=== PATIENT | female | born 1970 | race Caucasian/White ===

== ENCOUNTER 2017-07-01 18:44 | Emergency (ER) | payer OTHER ==
[2017-07-01 19:14] LABS: BASOPHILS # (AUTO) 0.1 10^3/uL (0.0-0.1); BASOPHILS % (AUTO) 0.8 %; EOSINOPHILS # (AUTO) 0.2 10^3/uL (0.0-0.7); EOSINOPHILS % (AUTO) 2.6 %; HGB - HEMOGLOBIN 12.5 g/dL (12.0-16.0); LYMPHOCYTES # (AUTO) 3.1 10^3/uL (1.5-3.5); LYMPHOCYTES % (AUTO) 34.1 %; MEAN CORPUSCULAR HEMOGLOBIN 28.4 pg (27.0-31.0); MEAN CORPUSCULAR HGB CONC 33.2 g/dL (32.0-36.0); MEAN CORPUSCULAR VOLUME 85.4 fL (81.0-99.0); MEAN PLATELET VOLUME 7.8 fL (7.9-10.8); MONOCYTES # (AUTO) 0.5 10^3/uL (0.0-1.0); MONOCYTES % (AUTO) 5.8 %; NEUTROPHILS # (AUTO) 5.1 10^3/uL (1.5-6.6); NEUTROPHILS % (AUTO) 56.7 %; PLT - PLATELET COUNT 252 10^3/uL (130-450); RED BLOOD COUNT 4.42 10^6/uL (4.20-5.40); RED CELL DISTRIBUTION WIDTH 13.8 % (12.0-15.0)
[2017-07-01 19:24] LABS: ALBUMIN/GLOBULIN RATIO 1.2 (1.0-2.2); BILIRUBIN,TOTAL 0.2 mg/dL (0.2-1.0); CALCIUM 8.9 mg/dL (8.5-10.3); CREATININE 0.8 mg/dL (0.4-1.0); TOTAL PROTEIN 7.3 g/dL (6.7-8.2)
--- NOTE | 2017-07-01 19:25 | ED Physician Documentation ---
History of Present Illness - Stated complaint Stated Complaint: BARRIOS/ABDIAZIZ/ABD & BACK PX - Chief complaint Chief Complaint: General - History obtained from History obtained from: Patient - History of Present Illness Timing: How many days ago (several) Pain level max: 7 Pain level now: 6 Improved by: nothing Worsened by: eating - Additonal information Additional information: 46 yo F with epigastric pain x 2 weeks. Worse after eating. nothing makes it better. States increased intake of fast food recently. Drinks 2-8 cups of coffee per day. No fever. No diarrhea. No constipation. Has been on omeprazole for 3 months. Had H. Pylori testing that was negative. Has not had an endoscopy. Has also been taking ibuprofen 2-3 times a day for intermittent headaches and sinus pain. 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 HEENT: Tonsil/Adenoidectomy - Present Medications Home Medications: Ambulatory Orders Medication Instructions Recorded Confirmed Famotidine [Pepcid] 20 mg PO BID #60 tablet 07/01/17 Omeprazole 20 mg PO DAILY 07/01/17 07/01/17 Sucralfate [Carafate] 1 gm PO ACHS #60 tablet 07/01/17 - Allergies Allergies/Adverse Reactions: Allergies Allergy/AdvReac Type Severity Reaction Status Date / Time acetaminophen Allergy Unknown Verified 03/06/16 18:37 [From Tylenol-Codeine #3] codeine phosphate * Allergy Unknown Verified 03/06/16 18:37 [From Tylenol-Codeine #3] Penicillins Allergy Unknown Verified 03/06/16 18:37 - Social History Does the pt smoke?: No Smoking Status: Never smoker Does the pt drink ETOH?: No Does the pt have substance abuse?: No - Immunizations Immunizations are current?: Yes Immunizations: TDAP current <10years PD ED PE NORMAL - Vitals Vital signs reviewed: Yes - General General: Alert and oriented X 3, No acute distress - HEENT HEENT: Moist mucous membranes - Neck Neck: Supple, no meningeal sign - Cardiac Cardiac: RRR, Strong equal pulses - Respiratory Respiratory: No respiratory distress, Clear bilaterally - Abdomen Abdomen: Soft, Non distended, Other (TTP epigastric. neg serrano's sign. no peritoneal signs.) - Derm Derm: Warm and dry, No rash - Neuro Neuro: Alert and oriented X 3 - Psych Psych: Normal mood, Normal affect Results - Vitals Vitals: Vital Signs - 24 hr 07/01/17 07/01/17 18:53 19:51 Temperature 36.9 C Heart Rate 71 62 Respiratory 16 18 Rate Blood Pressure 168/94 H 134/80 H O2 Saturation 97 96 Oxygen O2 Source Room air - EKG (time done) 1859 Rate: Rate (enter#) (66) Rhythm: NSR [place]: Normal Intervals: Normal AR QRS: Normal Ischemia: Normal ST segments Computer interpretation: Agree with computer - Labs Labs: Laboratory Tests 07/01/17 07/01/17 19:00 19:00 WBC 9.0 RBC 4.42 Hgb 12.5 Hct 37.7 MCV 85.4 MCH 28.4 MCHC 33.2 RDW 13.8 Plt Count 252 MPV 7.8 L Neut # 5.1 Lymph # 3.1 [place] # 0.5 Eos # 0.2 Baso # 0.1 Absolute Nucleated RBC 0.01 Nucleated RBC % 0.1 Sodium 137 Potassium 4.1 Chloride 103 Carbon Dioxide 26 Anion Gap 8.0 BUN 15 Creatinine 0.8 Estimated GFR (MDRD) 77 L Glucose 103 H Calcium 8.9 Total Bilirubin 0.2 AST 35 ALT 106 H Alkaline Phosphatase 76 Total Protein 7.3 Albumin 4.0 Globulin 3.3 Albumin/Globulin Ratio 1.2 Lipase 22 PD MEDICAL DECISION MAKING - ED course Complexity details: reviewed results, re-evaluated patient, considered differential, d/w patient, d/w family ED course: Patient is a 46-year-old female who presents to the emergency department with what sounds like gastritis. Will add Carafate and Pepcid onto her home medications. No evidence of acute cholecystitis. She is well-appearing, nontoxic. Afebrile. Tolerating p.o. without difficulty here. Feels better after GI cocktail. Will have her follow-up with her doctor for further evaluation and care. Counseled regarding dietary changes as well and to avoid NSAIDs. Also to cut down on coffee. Patient counseled regarding signs and symptoms for which I believe and urgent re-evaluation would be necessary. Patient with good understanding of and agreement to plan and is comfortable going home at this time This document was made in part using voice recognition software. While efforts are made to proofread this document, sound alike and grammatical errors may occur. Departure - Departure Disposition: Home, Self Care Clinical Impression: Gastritis Qualifiers: Gastritis type: unspecified gastritis Chronicity: acute Gastritis bleeding: without bleeding Qualified Code(s): K29.00 - Acute gastritis without bleeding Condition: Good Instructions: ED PUD Vs Gastritis Follow-Up: Mamie Farfan DO [Primary Care Provider] - Within 1 week Prescriptions: Famotidine [Pepcid] 20 mg PO BID #60 tablet Sucralfate [Carafate] 1 gm PO ACHS #60 tablet Comments: Continue your omeprazole at home. Return if you worsen. You should have an endoscopy performed to evaluate your stomach. This can be scheduled with your doctor. Please also stop any fried foods, spicy foods, caffeine, nonsteroidal anti-inflammatory medication such as Motrin. Discharge Date/Time: 07/01/17 19:57
[2017-07-01] MEDS ORDERED: FAMOTIDINE 20 MG TABLET PO STA (19:26)
[2017-07-01] MEDS ORDERED: MAG HYDROX/AL HYDROX/SIMETH 30 ML UDC PO STA (19:26)
[2017-07-01] MEDS ORDERED: PHENobarb/HYOSCY/ATROPINE/SCOP 5 ML UDC PO STA (19:26)
[2017-07-01] MEDS ORDERED: LIDOCAINE VISCOUS 2% 15 ML UDC MM STA (19:26)
[2017-07-01] MEDS ORDERED: SUCRALFATE 1 GM/10 ML UDC PO STA (19:26)
[2017-07-01 19:52] VITALS: BP 134/80
== END 2017-07-01 19:57 | disposition home or self-care (01) ==
LOC: ED 18:44
DX: K29.00 Acute gastritis without bleeding (principal)
CPT/HCPCS: 36415; 80053; 83690; 85025; 93005; 99283; 99284; A9270

== ENCOUNTER 2018-05-27 14:00 | Emergency (ER) | payer OTHER ==
[2018-05-27] MEDS ORDERED: cephALEXin 250 MG CAPSULE PO STA (14:23)
--- NOTE | 2018-05-27 14:26 | ED Physician Documentation ---
PD HPI SKIN - Stated complaint Stated Complaint: WOUND CHECK - Chief complaint Chief Complaint: Wound - History obtained from History obtained from: Patient - History of Present Illness Timing - onset: Other (She had some suspicious skin lesions removed about 9 days ago and over the last 3 days has increased pain from one on the left lower abdominal wall with some redness but no fevers.) Review of Systems Constitutional: denies: Fever, Chills Cardiac: reports: Reviewed and negative Respiratory: reports: Reviewed and negative PD PAST MEDICAL HISTORY - Past Medical History GI: GERD - Past Surgical History 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 HEENT: Tonsil/Adenoidectomy - Present Medications Home Medications: Ambulatory Orders Medication Instructions Recorded Confirmed Cephalexin [Keflex] 500 mg PO Q6H #28 capsule 05/27/18 - Allergies Allergies/Adverse Reactions: Allergies Allergy/AdvReac Type Severity Reaction Status Date / Time codeine Allergy Unknown Verified 05/27/18 14:11 Penicillins Allergy Unknown Verified 03/06/16 18:37 - Social History Does the pt smoke?: No Smoking Status: Never smoker Does the pt drink ETOH?: No Does the pt have substance abuse?: No - Immunizations Immunizations are current?: Yes Immunizations: TDAP current <10years PD ED PE NORMAL - Vitals Vital signs reviewed: Yes - General General: Alert and oriented X 3, No acute distress - Derm Derm: Other (There is a sutured biopsy to the mid back which looks fine. A couple of scraped lesions, low back and right upper quadrant that look fine. There is a sutured wound to the left lower quadrant with mild surrounding cellulitis but no fluctuance or drainable or cultureable fluid.) - Neuro Neuro: Alert and oriented X 3, Normal speech Results - Vitals Vitals: Vital Signs - 24 hr 05/27/18 14:06 Temperature 36.7 C Heart Rate 70 Respiratory 15 Rate Blood Pressure 147/83 H O2 Saturation 100 Oxygen O2 Source Room air Departure - Departure Disposition: Home, Self Care Clinical Impression: Wound infection Condition: Good Record reviewed to determine appropriate education?: Yes Instructions: ED Wound Care Prescriptions: Cephalexin [Keflex] 500 mg PO Q6H #28 capsule Comments: 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 Return for new or worsening symptoms. Your blood pressure was elevated today on check into the emergency department. This does not mean that you have hypertension, it is a common phenomenon to come to the emergency department and have elevated blood pressure. I recommend that you see your primary care physician within the week to have it rechecked when you are feeling better.
[2018-05-27 14:34] VITALS: BP 117/64
== END 2018-05-27 14:40 | disposition home or self-care (01) ==
LOC: ED 14:00
DX: L03.311 Cellulitis of abdominal wall (principal); T81.49XA Infection following a procedure, other surgical site, initial encounter; Y83.8 Other surgical procedures as the cause of abnormal reaction of the patient, or of later complication, without mention of misadventure at the time of the procedure; R03.0 Elevated blood-pressure reading, without diagnosis of hypertension
CPT/HCPCS: 99283; A9270

== ENCOUNTER 2019-06-29 18:30 | Emergency (ER) | payer OTHER ==
[2019-06-29] MEDS ORDERED: HYDROcod/ACET 5/325 Prepack 4 PO STA (19:02)
--- NOTE | 2019-06-29 19:02 | ED Physician Documentation ---
PD HPI UPPER EXT INJURY - Stated complaint Stated Complaint: LT RING FINGER LAC - Chief complaint Chief Complaint: Laceration - History obtained from History obtained from: Patient (She cut the tip off her left ring finger with a sharp blade at home just prior to arrival. 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 HEENT: Tonsil/Adenoidectomy - Present Medications Home Medications: Ambulatory Orders Medication Instructions Recorded Confirmed Cephalexin [Keflex] 500 mg PO Q6H #28 capsule 05/27/18 - Allergies Allergies/Adverse Reactions: Allergies Allergy/AdvReac Type Severity Reaction Status Date / Time codeine Allergy Unknown Verified 06/29/19 18:38 Penicillins Allergy Unknown Verified 06/29/19 18:38 - Social History Does the pt smoke?: No Smoking Status: Former smoker Does the pt drink ETOH?: No Does the pt have substance abuse?: No - Immunizations Immunizations are current?: Yes Immunizations: TDAP current <10years - POLST Patient has POLST: No PD ED PE NORMAL - Vitals Vital signs reviewed: Yes - General General: Alert and oriented X 3, No acute distress - Extremities Extremities: Other (She has a complete avulsion of the skin of the pulp of the left fourth finger. It is less than 1 cm.) - Neuro Neuro: Alert and oriented X 3, Normal speech Results - Vitals Vitals: Vital Signs - 24 hr 06/29/19 18:38 Temperature 36.7 C Heart Rate 71 Respiratory 18 Rate Blood Pressure 131/81 H O2 Saturation 96 Oxygen O2 Source Room air PD MEDICAL DECISION MAKING - ED course ED course: It was irrigated and dressed with Surgicel and a finger wrap which resulted in hemostasis. She was given for Vicodin to go and counseled on wound care. Departure - Departure Disposition: 01 Home, Self Care Clinical Impression: Avulsion of fingertip Qualifiers: Encounter type: initial encounter Qualified Code(s): S61.209A - Unspecified open wound of unspecified finger without damage to nail, initial encounter Instructions: ED Laceration Amputation Finger Tip Open Tx Comments: Wound Check with your doctor in 1 week, keep the current dressing on for about 48 hours, after that point you can keep it moist with bacitracin ointment and a Band-Aid.
[2019-06-29 19:35] VITALS: BP 131/73
== END 2019-06-29 19:40 | disposition home or self-care (01) ==
LOC: ED 18:30
DX: S61.208A Unspecified open wound of other finger without damage to nail, initial encounter (principal); W27.8XXA Contact with other nonpowered hand tool, initial encounter; Y93.D2 Activity, sewing; Z87.891 Personal history of nicotine dependence
CPT/HCPCS: 99282; 99283

== ENCOUNTER 2019-10-29 20:45 | Emergency (ER) | payer OTHER ==
--- NOTE | 2019-10-29 22:44 | ED Physician Documentation ---
PD HPI LOWER EXT INJURY - Stated complaint Stated Complaint: LT LEG SWELL/PX/DISCOLORED/NAUSEA - Chief complaint Chief Complaint: Ext Problem - History obtained from History obtained from: Patient - History of Present Illness PD HPI LOW EXT INJURY LOCATION: Left, Lower leg Type of injury: Other (She was sitting at at her chair doing work and noted onset of some swelling of the left leg and some pain in the calf through the day. She was home and rested and was still having some discomfort there. No skin rash or sores.No injury.). No: Fall, Twist, Blunt / blow Where injury occurred: Home Timing - onset: Today Timing - duration: Days (1) Timing - details: Gradual onset, Still present Associated symptoms: Numbness (feeling of tingling/numbness this evening. No pain in the back/hip.), Swelling. No: Weakness Contributing factors: No: Anticoagulated, Prior ortho surgery Similar symptoms before: Has not had sx before Review of Systems Constitutional: denies: Fever, Chills, Myalgias Nose: denies: Rhinorrhea / runny nose, Congestion Throat: denies: Sore throat Cardiac: denies: Chest pain / pressure, Palpitations Respiratory: denies: Dyspnea, Cough GI: denies: Nausea, Vomiting, Diarrhea Skin: denies: Rash, Lesions Neurologic: denies: Focal weakness, Near syncope PD PAST MEDICAL HISTORY - Past Medical History Past Medical History: Yes Cardiovascular: None Respiratory: None Neuro: Headaches, Migraines Endocrine/Autoimmune: None GI: GERD 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 : Kidney stones HEENT: None Psych: None Musculoskeletal: None Derm: None - Past Surgical History 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 Surgical 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 HEENT: Tonsil/Adenoidectomy - Present Medications Home Medications: Ambulatory Orders Medication Instructions Recorded Confirmed Cephalexin [Keflex] 500 mg PO Q6H #28 capsule 05/27/18 - Allergies Allergies/Adverse Reactions: Allergies Allergy/AdvReac Type Severity Reaction Status Date / Time codeine Allergy Unknown Verified 10/29/19 20:51 Penicillins Allergy Unknown Verified 10/29/19 20:51 - Living Situation Living Arrangement: reports: At home - Social History Does the pt smoke?: No Smoking Status: Never smoker Does the pt drink ETOH?: No Does the pt have substance abuse?: No - Immunizations Immunizations are current?: Yes Immunizations: TDAP current <10years - POLST Patient has POLST: No PD ED PE NORMAL - Vitals Vital signs reviewed: Yes - General General: Alert and oriented X 3, No acute distress, Well developed/nourished - Cardiac Cardiac: RRR, No murmur - Respiratory Respiratory: Clear bilaterally - Abdomen Abdomen: Soft, Non tender - Back Back: No CVA TTP, No spinal TTP - Derm Derm: Normal color, Warm and dry, No rash - Extremities Extremities: No tenderness to palpate, Normal ROM s pain, No edema, Other (No edema in the foot. There is some tenderness with minimal swelling in the lower part of the lower leg on the left. The calf tenderness extends to the upper calf area. There is no tenderness in the popliteal space nor any fullness. She has good color and capillary refill/ good sensation) Results - Vitals Vitals: Vital Signs - 24 hr 10/29/19 10/29/19 10/29/19 20:51 22:45 23:48 Temperature 36.6 C 36.7 C Heart Rate 66 57 L 56 L Respiratory 14 12 17 Rate Blood Pressure 149/67 H 113/72 114/79 O2 Saturation 98 96 98 10/30/19 01:29 Temperature 36.1 C L Heart Rate 57 L Respiratory 17 Rate Blood Pressure 133/78 H O2 Saturation 98 Oxygen O2 Source Room air - Labs Labs: Laboratory Tests 10/29/19 10/29/19 22:48 22:48 WBC 6.8 RBC 4.27 Hgb 12.1 Hct 38.1 MCV 89.2 MCH 28.3 MCHC 31.8 L RDW 13.4 Plt Count 263 MPV 9.7 Neut # (Auto) 3.1 Lymph # (Auto) 2.8 [place] # (Auto) 0.5 Eos # (Auto) 0.3 Baso # (Auto) 0.1 Absolute Nucleated RBC 0.00 Nucleated RBC % 0.0 Sodium 138 Potassium 4.0 Chloride 103 Carbon Dioxide 29 Anion Gap 6.0 BUN 17 Creatinine 0.7 Estimated GFR (MDRD) 88 L Glucose 105 H Calcium 8.8 Total Bilirubin 0.3 AST 32 ALT 48 Alkaline Phosphatase 59 Total Creatine Kinase 69 C-Reactive Protein < 1.0 Total Protein 6.6 L Albumin 3.8 Globulin 2.8 Albumin/Globulin Ratio 1.4 Lipase 30 - Rads (name of study) duplex U/S Radiology: Prelim report reviewed (no DVT), See rad report PD MEDICAL DECISION MAKING - ED course Complexity details: considered differential (May be muscular. However need to evaluate for DVT as well as muscular breakdown or infectious. She does not take any statin medications. No other recent injury.), d/w patient Departure - Departure Disposition: 01 Home, Self Care Clinical Impression: Lower leg pain Qualifiers: Laterality: left Qualified Code(s): M79.662 - Pain in left lower leg Condition: Stable Record reviewed to determine appropriate education?: Yes Instructions: ED Muscle Pain Leg Cramps Comments: Your ultrasound is normal without any signs of blood clots and no signs of a Marquez's cyst. Your blood tests are normal as well without any signs of muscle breakdown nor elevated white count to suggest infection. At this point I would presume perhaps some compression or irritation of the nerve from the way or sitting possibly. At this point I would just see how much better you are feeling over the next day or 2 with the leg elevated often. Consider some anti-inflammatory such as ibuprofen or naproxen 2-3 times a day. Recheck if not improved over the next couple of days or if you develop worsening symptoms or other symptoms. Discharge Date/Time: 10/30/19 01:39
[2019-10-29 22:54] LABS: BASOPHILS # (AUTO) 0.1 10^3/uL (0.0-0.1); BASOPHILS % (AUTO) 1.3 %; EOSINOPHILS # (AUTO) 0.3 10^3/uL (0.0-0.7); EOSINOPHILS % (AUTO) 4.3 %; HGB - HEMOGLOBIN 12.1 g/dL (12.0-16.0); LYMPHOCYTES # (AUTO) 2.8 10^3/uL (1.5-3.5); LYMPHOCYTES % (AUTO) 41.1 %; MEAN CORPUSCULAR HEMOGLOBIN 28.3 pg (27.0-31.0); MEAN CORPUSCULAR HGB CONC 31.8 g/dL (32.0-36.0); MEAN CORPUSCULAR VOLUME 89.2 fL (81.0-99.0); MEAN PLATELET VOLUME 9.7 fL (7.9-10.8); MONOCYTES # (AUTO) 0.5 10^3/uL (0.0-1.0); MONOCYTES % (AUTO) 7.5 %; NEUTROPHILS # (AUTO) 3.1 10^3/uL (1.5-6.6); NEUTROPHILS % (AUTO) 45.4 %; PLT - PLATELET COUNT 263 10^3/uL (130-450); RED BLOOD COUNT 4.27 10^6/uL (4.20-5.40); RED CELL DISTRIBUTION WIDTH 13.4 % (12.0-15.0); WHITE BLOOD COUNT 6.8 x10^3/uL (4.8-10.8)
[2019-10-29 23:11] LABS: ALBUMIN 3.8 g/dL (3.2-5.5); ALBUMIN/GLOBULIN RATIO 1.4 (1.0-2.2); ALKALINE PHOSPHATASE 59 IU/L (42-121); ALT ALANINE AMINOTRANSFERASE 48 IU/L (10-60); AST ASPARTATE AMINOTRANSFERASE 32 IU/L (10-42); BILIRUBIN,TOTAL 0.3 mg/dL (0.2-1.0); BUN - BLOOD UREA NITROGEN 17 mg/dL (6-20); CALCIUM 8.8 mg/dL (8.5-10.3); CARBON DIOXIDE - CO2 29 mmol/L (21-32); CHLORIDE 103 mmol/L (101-111); CK- CREATINE KINASE 69 IU/L (22-269); CREATININE 0.7 mg/dL (0.4-1.0); GLUCOSE 105 mg/dL (70-100); LIPASE 30 U/L (22-51); SODIUM 138 mmol/L (135-145); TOTAL PROTEIN 6.6 g/dL (6.7-8.2)
[2019-10-29 23:12] LABS: CRP - C-REACTIVE PROTEIN < 1.0 mg/dL (0-1.0)
[2019-10-30 01:31] VITALS: BP 133/78
--- NOTE | 2019-10-30 07:14 | Ultrasound Report ---
PROCEDURE: Duplex Ext Veins Left INDICATIONS: left calf pain and swelling TECHNIQUE: Real-time imaging, as well as color and pulse Doppler interrogation, were performed of the lower extr emity deep veins from the inguinal ligament to the popliteal fossa. COMPARISON: None. FINDINGS: The deep veins are normally compressible, and free of intraluminal thrombus. Color and pu lse Doppler demonstrate normal phasic intraluminal flow. There is normal augmentation response to di stal compression maneuver. IMPRESSION: No evidence of deep vein thrombosis involving the left lower extremity. Reviewed by: Mey Orta MD, PhD on 10/30/2019 7:13 AM PDT Approved by: Mey Orta MD, PhD on 10/30/2019 7:13 AM PDT Station ID: [id number]
== END 2019-10-30 01:39 | disposition home or self-care (01) ==
LOC: ED 20:45
DX: M79.662 Pain in left lower leg (principal); M79.89 Other specified soft tissue disorders
CPT/HCPCS: 36415; 80053; 82550; 83690; 85025; 86140; 99284

== ENCOUNTER 2020-05-18 17:00 | Emergency (ER) | payer OTHER ==
[2020-05-18 17:12] VITALS: BP 139/88
--- NOTE | 2020-05-18 17:18 | ED Physician Documentation ---
PD HPI UPPER EXT INJURY - Stated complaint Stated Complaint: LEFT HAND PX - Chief complaint Chief Complaint: Trauma Ext - History obtained from History obtained from: Patient - History of Present Illness Location: Left, Hand Type of injury: Fall Where injury occurred: Street Timing - onset: Today Worsened by: Moving Associated symptoms: No: Weakness, Numbness, Tingling - Additonal information Additional information: Her dog pulled the leash and she fell on an outstretched hand with pain in the left fifth metacarpal without other injuries. 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 HEENT: Tonsil/Adenoidectomy - Present Medications Home Medications: Ambulatory Orders Medication Instructions Recorded Confirmed cephALEXin [Keflex] 500 mg PO Q6H #28 capsule 05/27/18 - Allergies Allergies/Adverse Reactions: Allergies Allergy/AdvReac Type Severity Reaction Status Date / Time codeine Allergy Unknown Verified 10/29/19 20:51 Penicillins Allergy Unknown Verified 10/29/19 20:51 - Social History Does the pt smoke?: No Smoking Status: Never smoker Does the pt drink ETOH?: No Does the pt have substance abuse?: No - Immunizations Immunizations are current?: Yes Immunizations: TDAP current <10years - POLST Patient has POLST: No PD ED PE NORMAL - Vitals Vital signs reviewed: Yes - General General: Alert and oriented X 3, No acute distress - Extremities Extremities: Other (Tender in the area of the left mid fifth metacarpal without limited range of motion loss, loss of saccade, or deformity.) - Neuro Neuro: Alert and oriented X 3, Normal speech Results - Vitals Vitals: Vital Signs - 24 hr 05/18/20 17:08 Temperature 36.3 C L Heart Rate 73 Respiratory 18 Rate Blood Pressure 139/88 H O2 Saturation 99 Oxygen O2 Source Room air PD MEDICAL DECISION MAKING - ED course ED course: Three-view x-ray of the left hand was negative for acute fracture. Close follow-up was advised if not rapidly improving. Departure - Departure Disposition: 01 Home, Self Care Clinical Impression: Contusion of left hand Qualifiers: Encounter type: initial encounter Qualified Code(s): S60.222A - Contusion of left hand, initial encounter Condition: Good Record reviewed to determine appropriate education?: Yes Instructions: ED Sprain Hand Comments: Tylenol or ibuprofen as needed for pain. Return for new or worsening symptoms. Follow-up with your doctor in a week if not better. Discharge Date/Time: 05/18/20 17:49
--- NOTE | 2020-05-18 17:39 | XRAY Report ---
PROCEDURE: Hand 3 View LT INDICATIONS: Trauma, GLF TECHNIQUE: 3 views of the hand acquired. COMPARISON: None. FINDINGS: Bones: No definite fractures or dislocations. The lateral projection is slightly limited by positio steve. No suspicious bony lesions. Soft tissues: No suspicious soft tissue calcifications. IMPRESSION: 1. No definite fracture or dislocation. Reviewed by: Sylvain Gonzalez MD on 05/18/2020 5:37 PM PST Approved by: Sylvain Gonzalez MD on 05/18/2020 5:37 PM PST Station ID: [id number]
== END 2020-05-18 17:49 | disposition home or self-care (01) ==
LOC: ED 17:00
DX: S60.222A Contusion of left hand, initial encounter (principal); W18.39XA Other fall on same level, initial encounter; Y93.K1 Activity, walking an animal; Y92.410 Unspecified street and highway as the place of occurrence of the external cause
CPT/HCPCS: 99282; 99283